=== PATIENT | male | born 1940 | race Caucasian/White ===

== ENCOUNTER 2018-09-27 09:25 | Day surgery (SDC) | payer OTHER ==
[2018-09-22 16:11] VITALS: BMI 24.3
[2018-09-27 11:25] VITALS: TEMP 98.1
[2018-09-27 11:40] VITALS: BP 121/77; PULSE 69
--- NOTE | 2018-09-29 09:52 | PATH ---
Surgical Pathology Report Patient Name: KYLIE ROMO [facility]. Rec. #: [id number] /Age/Gender: 1940 (Age: 78) / M Account: [id number] Location: [facility] Taken: 09/27/2018 Received: 09/27/2018 Reported: 09/29/2018 Physicians: Venu Ortega M.D. Specimen(s) Received RECTOSIGMOID POLYP Clinical History Screening Postoperative diagnosis: Polyp Final Diagnosis RECTOSIGMOID, POLYP, BIOPSY: TUBULOVILLOUS ADENOMA. Electronically Signed Tianna Gill M.D. Gross Description Received in formalin, labeled "rectosigmoid polyp" is a foley, irregular portion of soft tissue measuring 0.5 cm. in greatest dimension. The specimen is submitted in toto in one cassette. 09/28/201809/28/2018
== END 2018-09-27 11:45 | disposition home or self-care (01) ==
LOC: FASU-ENDO 09:25
PROVIDERS: ATTEND Internal Medicine Gastroenterology
PROC: 0DBN8ZX Excision of Sigmoid Colon, Via Natural or Artificial Opening Endoscopic, Diagnostic (ICD-10-PCS; principal; 2018-09-27 10:51)
DX: Z12.11 Encounter for screening for malignant neoplasm of colon (principal); D12.7 Benign neoplasm of rectosigmoid junction
CPT/HCPCS: 88305-TC